=== PATIENT | female | born 1990 | race Caucasian/White ===

== ENCOUNTER 2020-07-27 04:56 | Emergency (ER) | payer OTHER ==
[~2020-07-27] VITALS: Ht 162.6 cm; Wt 63.5 kg
[2020-07-27] MEDS ORDERED: CEFUROXIME500 MG PO (06:46)
[2020-07-27] MEDS ORDERED: KETO10TA2 PO (06:46)
== END 2020-07-27 06:57 | disposition home or self-care (01) ==
LOC: ER 04:56
DX: S01.02XA Laceration with foreign body of scalp, initial encounter (principal); W45.8XXA Other foreign body or object entering through skin, initial encounter; Y93.89 Activity, other specified; Y92.89 Other specified places as the place of occurrence of the external cause; Y99.8 Other external cause status